=== PATIENT | female | born 1955 | race Caucasian/White ===

== ENCOUNTER → 2018-05-04 | Outpatient (CLI) | payer BC ==
[2018-05-04 13:36] LABS: SODIUM 138 MMOL/L (135-145)
[2018-05-04 13:37] LABS: ALANINE AMINOTRANSFERASE 31 U/L (0-55); ALBUMIN 4.6 GM/DL (3.2-4.5); ALKALINE PHOSPHATASE 75 U/L (40-136); BILIRUBIN,TOTAL 0.6 MG/DL (0.1-1.0); BUN/CREATININE RATIO 17; CALCIUM 9.9 MG/DL (8.5-10.1); CARBON DIOXIDE 18 MMOL/L (21-32); CHLORIDE 97 MMOL/L (98-107); GFR ESTIMATED > 60; GLUCOSE 119 MG/DL (70-105); POTASSIUM 3.9 MMOL/L (3.6-5.0); TOTAL PROTEIN 7.6 GM/DL (6.4-8.2)
[2018-05-04 14:31] LABS: BASOPHILS % (AUTO) 1 % (0-10); EOSINOPHILS % (AUTO) 2 % (0-10); HEMATOCRIT 29 % (35-52); HEMOGLOBIN 8.4 G/DL (11.5-16.0); LYMPHOCYTES % (AUTO) 28 % (12-44); MEAN CORPUSCULAR HEMOGLOBIN 19 PG (25-34); MEAN CORPUSCULAR HGB CONC 29 G/DL (32-36); MEAN CORPUSCULAR VOLUME 67 FL (80-99); MEAN PLATELET VOLUME 9.7 FL (7.4-10.4); MONOCYTES % (AUTO) 7 % (0-12); NEUTROPHILS % (AUTO) 63 % (42-75); PLATELET COUNT 403 10^3/uL (130-400); RED CELL DISTRIBUTION WIDTH 16.8 % (10.0-14.5); WHITE BLOOD COUNT 7.2 10^3/uL (4.3-11.0)
[2018-05-04 14:32] LABS: ANISOCYTOSIS SLIGHT; BAND NEUTROPHILS 1 %; BASOPHILS # (AUTO) 0.1 10^3/uL (0.0-0.1); BASOPHILS % (MANUAL) 1 %; EOSINOPHILS # (AUTO) 0.1 10^3/uL (0.0-0.3); EOSINOPHILS % (MANUAL) 3 %; HYPOCHROMASIA MODERATE; LYMPHOCYTES % (MANUAL) 22 %; MONOCYTES # (AUTO) 0.5 X 10^3 (0.0-1.0); MONOCYTES % (MANUAL) 2 %; NEUTROPHILS # (AUTO) 4.6 X 10^3 (1.8-7.8); NEUTROPHILS % (MANUAL) 71 %; POIKILOCYTOSIS SLIGHT
[2018-05-04 16:29] LABS: FREE T4 (FREE THYROXINE) 1.17 NG/DL (0.70-1.48)
== END ==
LOC: LAB FS 12:02
PROVIDERS: ATTEND Family Medicine
DX: E11.9 Type 2 diabetes mellitus without complications (principal); R42 Dizziness and giddiness; R53.82 Chronic fatigue, unspecified
CPT/HCPCS: 36415; 80053; 83036; 84439; 84443; 85007; 85027

== ENCOUNTER 2018-07-22 07:40 | Outpatient (RCR) | payer BC ==
[2018-07-12] MEDS: IRON SUCROSE 200 MG/10 ML (VENOFER) VIAL IV SCH (10:44)
[2018-07-12 11:28] VITALS: BP 186/86
[2018-07-14] MEDS: IRON SUCROSE 200 MG/10 ML (VENOFER) VIAL IV SCH (11:00)
[2018-07-14 11:17] VITALS: BP 155/84
[2018-07-16 11:00] VITALS: BP 174/85
[2018-07-20] MEDS: IRON SUCROSE 200 MG/10 ML (VENOFER) VIAL IV SCH ×2 (10:15→11:10)
[2018-07-20 10:36] VITALS: BP 182/85
[~2018-07-22] VITALS: Ht 162.6 cm
[2018-07-22] MEDS ORDERED: IRON SUCROSE 200 MG/10 ML (VENOFER) VIAL IV ONE (07:42)
[2018-07-22] MEDS: IRON SUCROSE 200 MG/10 ML (VENOFER) VIAL IV SCH (07:45)
[2018-07-22 08:25] VITALS: BP 173/84
== END 2018-07-22 08:25 | disposition home or self-care (01) ==
LOC: SDC 07:40
PROVIDERS: ATTEND Family Medicine
DX: D50.9 Iron deficiency anemia, unspecified (principal)
CPT/HCPCS: 96365

== ENCOUNTER 2022-07-29 18:53 | Emergency (ER) | payer MEDICARE ==
[~2022-07-29] VITALS: Ht 154.9 cm; Wt 70.3 kg
[2022-07-29 18:54] VITALS: BP 158/79
--- NOTE | 2022-07-29 19:05 | ED Lower Extremity ---
General Chief Complaint: Lower Extremity Stated Complaint: FALL,L ANKLE PAIN Source: patient Exam Limitations: no limitations History of Present Illness Date Seen by Provider: Jul 29, 2022 Time Seen by Provider: 18:57 Initial Comments 67-year-old female presents for left ankle pain. She fell in a hole just prior to arrival. She has been able to bear weight but with significant pain. No other injuries. All other systems reviewed and negative except documented per HPI. Voice recognition software was used to help create this chart Allergies and Home Medications Allergies Coded Allergies: lisinopril (Verified Allergy, Intermediate, COUGH, 07/12/18) Patient Home Medication List Home Medication List Reviewed: Yes Review of Systems Constitutional: see HPI Past Cvpakrk-Xacdwv-Jembgw Hx Patient Social History Tobacco Use?: No Use of E-Cig and/or Vaping dev: No Substance use?: No Physical Exam Vital Signs Capillary Refill : Height, Weight, BMI Height: 5'4.00" Weight: 0lbs. 0.0oz. [id number]; BMI Method: General Appearance: WD/WN, no apparent distress Hips: bilateral hip non-tender, bilateral hip normal inspection, bilateral hip normal range of motion Legs: bilateral leg non-tender, bilateral leg normal inspection, bilateral leg normal range of motion Knees: bilateral knee non-tender, bilateral knee normal inspection, bilateral knee normal range of motion Ankles: left ankle swelling (Significant soft tissue swelling the lateral aspect of the left ankle over the lateral malleolus. There is tenderness at the distal tip of the lateral malleolus. No obvious deformity. Neurovascular motor and sensory intact.) Feet: left foot non-tender, left foot normal inspection, left foot normal range of motion Neurologic/Tendon: normal sensation, normal motor functions, normal tendon functions Neurologic/Psychiatric: alert, oriented x 3 Skin: normal color, warm/dry Progress/Results/Core Measures Results/Orders My Orders Orders - RADHA SINGLETON DO Ankle 3 View Left (07/29/22 18:56) Departure Communication (Admissions) I have independently reviewed the x-rays at bedside in real-time. Negative for fracture or dislocation. Given Aircast and discharged with supportive care Impression Primary Impression: Left ankle sprain Qualified Codes: S93.402A - Sprain of unspecified ligament of left ankle, initial encounter Disposition: 01 HOME, SELF-CARE Condition: Stable Departure-Patient Inst. Referrals: [facility] (PCP) Primary Care Physician RUTH TRACEY MD (Family) Primary Care Physician Patient Instructions: Ankle Sprain ED Add. Discharge Instructions: Use the Aircast as needed. Ice the area for 20 minutes at a time as needed. Elevate it when not in use. Bear weight as tolerated. Follow-up with your primary doctor for any nonemergent needs All discharge instructions reviewed with patient and/or family. Voiced understanding. RADHA SINGLETON DO Jul 29, 2022 19:05
--- NOTE | 2022-07-29 19:16 | Diagnostic Imaging Report ---
INDICATION: Fall with left ankle pain and injury. Time of Exam: 6:55 PM 3 views of the left ankle demonstrate significant soft tissue swelling about the lateral ankle. There appears to be acute avulsion fracture of the tip of the fibula. Ankle mortise is well-maintained. Talar dome is smooth. Distal tibia is intact. IMPRESSION: Distal fibular avulsion fracture with significant lateral ankle soft tissue swelling. Dictated by: Dictated on workstation # [id number]
== END 2022-07-29 19:14 | disposition home or self-care (01) ==
LOC: EDUNIT# 18:53 → ER FS 18:55
DX: S93.402A Sprain of unspecified ligament of left ankle, initial encounter (principal); Z28.310 Unvaccinated for COVID-19; W17.2XXA Fall into hole, initial encounter; X50.1XXA Overexertion from prolonged static or awkward postures, initial encounter; Y92.096 Garden or yard of other non-institutional residence as the place of occurrence of the external cause
CPT/HCPCS: 73610